=== PATIENT | female | born 1995 ===

== ENCOUNTER 2017-10-27 00:25 | Emergency (ER) | payer SELFPAY ==
[2017-10-27] MEDS ORDERED: IPRATROPIUM/ALBUTEROL SULFATE 3 ML AMPUL.NEB NEB ONE (00:33)
[2017-10-27] MEDS ORDERED: methylPREDNISolone SOD SUCC 125 MG/2 ML VIAL IM ONE (00:33)
--- NOTE | 2017-10-27 00:35 | ED Physician Documentation ---
Asthma - HISTORIAN Historian: patient - HPI Chief Complaint: Asthma Onset: days ago Duration: continues in ED Initiating Event: out of meds Associated Symptoms:: shortness of breath, chest tightness, other ("hard to catch breath") Current Asthma Therapy: albuterol inhaler, albuterol nebulizer Further Comments: yes (Patient with "really severe" asthma who has been out of her Advair 500 for several weeks due to being between insurances. Has been using albuterol but continues to feel SOB and wheezing. She is breast feeding.) - ROS CONST: no problems GI/: other (GERD controlled on zantac) - PAST HX Asthma: occasional attacks (Doing much better since 3 months ago), previously admitted ("Spent the first 10 years of my life in the hospital") Lung Disease: asthma Surgeries/Procedures: none Allergies/Adverse Reactions: Allergies Allergy/AdvReac Type Severity Reaction Status Date / Time No Known Allergies Allergy Verified 10/27/17 00:48 Home Medications: Ambulatory Orders Medication Instructions Recorded Albuterol Sulfate 1 appl INH DIRECTED 10/27/17 Ipratropium [place] 0.2 mg IH Q4H PRN #25 ml 10/27/17 Ranitidine HCl 150 mg PO BID #60 tablet 10/27/17 predniSONE [Deltasone] 40 mg PO QDAY #10 tablet 10/27/17 - SOCIAL HX Smoking History: cigarettes ("rarely") Alcohol Use: none Drug Use: none - FAMILY HX Family History: denies: asthma - REVIEWED ASSESSMENTS Nursing Assessment Reviewed: Yes Vitals Reviewed: Yes Progress - Progress Progress: Duoneb given - feels a little better. Moving air better. Solumedrol 125 mg IM and albuterol HFN given. Patient feels much better. Lung sounds improved. - EKG/XRAY/CT XRAY: chest (Normal) ED Results Lab/Radiology - Orders Orders: ED Orders Category Date Time Status CHEST 2VIEW [RAD] Urgent Exams 10/27/17 Ordered Ipratropium/Albuterol Sulfate [Duoneb] Med 10/27/17 00:33 Once 3 ml NEB NOW ONE methylPREDNISolone SOD SUCC [Solu-MEDROL] Med 10/27/17 00:33 Once 125 mg IM NOW ONE Asthma Physical Exam - EXAM General Appearance: mild distress EENT: eye inspection normal, ENT inspection normal, pharynx normal Neck: nml inspection Respiratory: decreased air movement, wheezes (faint) CVS: reg rate & rhythm, heart sounds normal, equal pulses Neuro/Psych: oriented x3 Discharge Clincal Impression: Asthma exacerbation Prescriptions: Ipratropium [place] 0.2 mg IH Q4H PRN #25 ml PRN Reason: Wheezing predniSONE [Deltasone] 40 mg PO QDAY #10 tablet Ranitidine HCl 150 mg PO BID #60 tablet Additional Instructions: Come by my clinic in the morning for Advair samples. Prednisone 40 mg daily x 5 days. Albuterol nebulizer every 4 hours x 48 hours then as needed. Condition: Good Disposition: 01 HOME, SELF-CARE Decision to Admit: NO Decision Time: 01:48
[2017-10-27] MEDS ORDERED: ALBUTEROL SULFATE 2.5 MG/3 ML AMPUL.NEB NEB ONE (01:04)
[2017-10-27 01:51] VITALS: BP 125/68
--- NOTE | 2017-10-27 06:44 | Diagnostic Imaging Report ---
LIVIA KERN [facility] [address] [facility] [address] [address] Report Submission Date: Oct 27, 2017 1:14:31 AM CDT Patient Study Name: LEROY SUMMERS Date: Oct 27, 2017 12:37:04 AM CDT Modality Type: DX Gender: F Description: CHEST : 89 Institution: [facility] Physician: LIVIA KERN Chest two views History: Cough and shortness of breath Findings: The lungs are mildly hyperinflated without infiltrate or pleural effusion. Heart size and pulmonary vascularity are normal. Osseous structures are intact. Impression: Hyperinflation. Electronically signed on Oct 27, 2017 1:14:31 AM CDT by: Philippe ATKINS
== END 2017-10-27 01:45 | disposition home or self-care (01) ==
LOC: ED 00:25
DX: J45.901 Unspecified asthma with (acute) exacerbation (principal)
CPT/HCPCS: 71046; J2930; 94640; 96372; 99284